=== PATIENT | male | born 1945 | race Caucasian/White ===

== ENCOUNTER 2016-11-02 18:22 | Emergency (ER) | payer OTHER ==
[~2016-11-02] VITALS: Ht 167.6 cm; Wt 108.9 kg
[~2016-11-02 18:22] MED LIST: CIALIS20 MG PO; DUREZOL 5 ML5 ML OPH; GATIFLOXACIN OPH; GOOD SENSE IBU200 MG PO; SIMVASTATIN40 MG PO; ZYRTEC ALLERGY10 MG PO
[2016-11-02] MEDS ORDERED: ZOCOR40 M1 PO (20:09)
[2016-11-02] MEDS ORDERED: CLARITIN10 M1 PO (20:11)
--- NOTE | 2016-11-02 20:11 | ED SKIN/ALLERGY COMPLAINT ---
History of Present Illness General Chief Complaint: Animal/Insect Bite Stated Complaint: BODY ACHES S/P TICK BITE Source: patient Exam Limitations: no limitations Allergies Coded Allergies: atorvastatin (From LIPITOR) (Mild, RASH 11/02/16) Triage Note: TRIAGE: PT TO ER C/C C/P, ACHY LEGS AND "MORE PAINS THAN USUAL" S/P TICK BITE. STATES FOUND ONE IN [place] TODAY THAT HE REMOVED BUT IS UNSURE IF HE REMOVED IT ALL. STATES IT HAS BEEN ON HIM SINCE TUESDAY HE HAD FOUND OTHERS ON TUESDAY. -SOB, -N/V, -DIAPHORESIS. Triage Nurses Notes Reviewed? yes HPI: This patient is a 70-year-old male with past medical history including dyslipidemia who presented to the emergency department today accompanied by his for evaluation of a tick bite. The patient reported that on Tuesday he went hunting and came home to find multiple ticks all over his body. He removed them all, but noticed one in his belly button this morning. He reported that he removed it, but does not know of the head is still in place. He reported that he has had some body aches, reported that he has body aches, "all the time." He did report that over the last 2 days he has had intermittent chest aching which sometimes radiates to his back which he attributes to a recent cold with chest congestion. The patient denied any difficulty breathing, fevers, chills, visual changes, abdominal pain, nausea, or vomiting. (BO WALTER,LUNA) Vital Signs & Intake/Output Vital Signs & Intake/Output Vital Signs Date Time Temp Pulse Resp B/P Pulse O2 O2 Flow FiO2 Ox Delivery Rate 11/02 2202 80 14 120/65 97 11/02 1828 97.8 78 20 119/71 96 Room Air Reconcile Medications Doxycycline Hyclate (Vibramycin) 100 MG CAPSULE 1 CAP PO BID lyme Loratadine (Claritin) 10 MG TABLET 1 TAB PO DAILY ALLERGIES (Reported) Simvastatin (Zocor*) 40 MG TABLET 1 TAB PO QPM CHOLESTEROL (Reported) (ROMY JESUS,CARRILLO Wright) Past History Travel History Traveled to [place] past 21 day No Medical History Any Pertinent Medical History? 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 No (LUNA SORIANO PA-C) Review of Systems Review of Systems Constitutional: Reports: no symptoms. EENTM: Reports: no symptoms. Respiratory: Reports: no symptoms. Cardiovascular: Reports: see HPI. GI: Reports: no symptoms. Genitourinary: Reports: no symptoms. Musculoskeletal: Reports: no symptoms. Skin: Reports: see HPI. Neurological/Psychological: Reports: no symptoms. All Other Systems: Reviewed and Negative (LUNA SORIANO PA-C) Physical Exam Physical Exam General Appearance: well developed/nourished, no apparent distress, alert, awake Comments: Well-developed well-nourished person in no acute distress HEENT: Normal EENT exam, head normocephalic/atraumatic, moist mucous membranes Neck: Supple, no lymphadenopathy Back: Normal gait. Normal inspection Cardiovascular: Regular rate and rhythm with no murmurs, rubs, or gallops Respiratory: Chest nontender. No respiratory distress. Breath sounds clear to auscultation bilaterally with no wheezes, rales, rhonchi Abdomen: Soft, nontender and nondistended Extremity: Normal and equal pulses. Neuro: Alert oriented x3, cranial nerves II through XII grossly intact. Skin: No appreciable rash on exposed skin, skin is warm and dry. Approximately 0.5 area of erythema noted to the inside of the umbilicus with no evidence of retained foreign body. No bull's-eye rash Psych: Mood and affect is normal, memory and judgment is normal. (LUNA SORIANO PA-C) Progress Differential Diagnosis: abscess/cellulitis, allergic reaction, contact dermatitis, lyme disease, acs, pe, UPPER RESPIRATORY TRACT INFECTION Initial ED EKG: normal axis, normal intervals, normal p-waves, normal QRS complex, normal sinus rhythm, no ST T wave changes, 74 BPM (LUNA SORIANO PA-C) Plan of Care: Orders Procedure Date/time Status TROPONIN LEVEL 11/02 2008 Complete LYME TITRE 11/02 2008 Active COMPREHENSIVE METABOLIC PANEL 11/02 2008 Complete CBC WITHOUT DIFFERENTIAL 11/02 2008 Complete EKG 11/02 1833 Active Laboratory Tests 11/02/160: Anion Gap 11, Estimated GFR > 60, BUN/Creatinine Ratio 21.1, Glucose 91, Calcium 10.0, Total Bilirubin 0.5, AST 39, ALT 47, Alkaline Phosphatase 55, Troponin I < 0.01, Total Protein 7.4, Albumin 4.5, Globulin 2.9, Albumin/Globulin Ratio 1.6, CBC w Diff NO MAN DIFF REQ, RBC 4.82, MCV 92.6, MCH 31.5 H, RDW 13.7, MPV 7.2 L, Gran % 42.4, Lymphocytes % 46.2, Monocytes % 7.7, Eosinophils % 3.1, Basophils % 0.6, Absolute Granulocytes 3.4, Absolute Lymphocytes 3.7 H, Absolute Monocytes 0.6, Absolute Eosinophils 0.2, Absolute Basophils 0, PUBS MCHC 34.0, Lyme Disease Antibody Pending Departure Departure Disposition: HOME OR SELF CARE Condition: Stable Clinical Impression Primary Impression: Tick bite Qualifiers: Encounter type: initial encounter Qualified Code: W57.XXXA - Bitten or stung by nonvenomous insect and other nonvenomous arthropods, initial encounter Referrals: REE JESUS,SUSY Patterson (PCP/Family) Additional Instructions: Please take antibiotic as prescribed and reports full duration. Please follow- up with your primary care physician. If you do not receive a call back from our lab in 5 days, you may call the emergency department to get an update on for Lyme titer. Return to the emergency department for any worsening symptoms or concerns. Departure Forms: Customer Survey General Discharge Information Prescriptions: Current Visit Scripts Doxycycline Hyclate (Vibramycin) 1 CAP PO BID 21 Days (LUNA SORIANO PA-C) PA/CHIEF CARDIOPULMONARY TECHNOLOGIST Co-Sign Statement Statement: ED Attending supervision documentation- [X] I saw and evaluated the patient. I have also reviewed all the pertinent lab results and diagnostic results. I agree with the findings and the plan of care as documented in the PA's/CHIEF CARDIOPULMONARY TECHNOLOGIST's documentation. [X] I have reviewed the ED Record and agree with the PA's/CHIEF CARDIOPULMONARY TECHNOLOGIST's documentation. [] Additions or exceptions (if any) to the PAs/CHIEF CARDIOPULMONARY TECHNOLOGIST's note and plan are summarized below: [] (ROMY JESUS,CARRILLO Wright)
[2016-11-02 20:56] LABS: ABSOLUTE BASOPHIL COUNT 0 /CUMM (0.0-0.2); ABSOLUTE EOSINOPHIL COUNT 0.2 /CUMM (0.0-0.7); ABSOLUTE GRANULOCYTE CT 3.4 /CUMM (1.4-6.5); ABSOLUTE LYMPH COUNT 3.7 /CUMM (1.2-3.4); ABSOLUTE MONOCYTE COUNT 0.6 /CUMM (0.10-0.60); BASOPHIL % 0.6 % (0.0-2.0); EOSINOPHIL % 3.1 % (0-5); GRANULOCYTE % 42.4 % (42.2-75.2); HEMATOCRIT 44.6 % (42-52); MEAN CORPUSCULAR HGB 31.5 PG (27.0-31.0); MEAN CORPUSCULAR VOLUME 92.6 FL (80.0-94.0); MEAN PLATELET VOLUME 7.2 FL (7.4-10.4); PLATELET COUNT 228 /CUMM (130-400); RBC DISTRIBUTION WIDTH 13.7 % (11.5-14.5); RED BLOOD CELL CT 4.82 /CUMM (4.70-6.10)
[2016-11-02] MEDS ORDERED: VIBRAMYCIN100 MG PO (21:52)
[2016-11-02 22:02] VITALS: BP 120/65
== END 2016-11-02 22:03 ==
LOC: ERH 18:22
PROVIDERS: Physician Assistant
DX: R07.89 Other chest pain (principal); S30.861A Insect bite (nonvenomous) of abdominal wall, initial encounter; W57.XXXA Bitten or stung by nonvenomous insect and other nonvenomous arthropods, initial encounter
CPT/HCPCS: 86618; 93005; 93010